=== PATIENT | female | born 1950 | race African-American/Black ===

== ENCOUNTER 2021-04-06 08:22 | Emergency (ER) | payer OTHER ==
[2021-04-06 08:43] VITALS: BP 160/73; PULSE 81; TEMP 97.7; BMI 23.7
[2021-04-06] MEDS ORDERED: LIDOCAINE 5% TOPICAL PATCH TP ONE (08:48)
[2021-04-06] MEDS ORDERED: LIDOCAINE 5% TOPICAL PATCH ONE (08:59)
[2021-04-06] MEDS ORDERED: KETOROLAC TROMETHAMINE 15 MG/ML VIAL IM ONE (09:08)
[2021-04-06] MEDS ORDERED: KETOROLAC TROMETHAMINE 15 MG/ML VIAL ONE ×2 (09:51→09:52)
[2021-04-06] MEDS ORDERED: LIDOCAINE PATCH REMOVAL MC SCH (22:00)
== END 2021-04-06 10:37 | disposition home or self-care (01) ==
LOC: JER 08:22
PROC: 3E0233Z Introduction of Anti-inflammatory into Muscle, Percutaneous Approach (ICD-10-PCS; principal; 2021-04-06)
DX: M54.2 Cervicalgia (principal); R20.2 Paresthesia of skin; M79.601 Pain in right arm
CPT/HCPCS: 99283-25

== ENCOUNTER 2021-08-02 08:28 | Emergency (ER) | payer OTHER ==
[2021-08-02 08:36] VITALS: BP 178/94; PULSE 86; TEMP 97.9; BMI 24.5
[2021-08-02] MEDS ORDERED: DIPHTH,PERTUSS(ACELL),TET 0.5 ML DISP.SYRIN IM ONE ×3 (09:07→09:30)
== END 2021-08-02 10:00 | disposition home or self-care (01) ==
LOC: JERFT 08:28
PROC: 3E0234Z Introduction of Serum, Toxoid and Vaccine into Muscle, Percutaneous Approach (ICD-10-PCS; principal; 2021-08-02)
DX: S01.21XA Laceration without foreign body of nose, initial encounter (principal); W50.3XXA Accidental bite by another person, initial encounter; Y92.9 Unspecified place or not applicable
CPT/HCPCS: 90715; 99283-25